=== PATIENT | female | born 1945 | race Caucasian/White ===

== ENCOUNTER 2017-09-25 13:52 | Emergency (ER) | payer OTHER, MEDICARE ==
[2017-09-25] MEDS: DEXAMETHASONE 10 MG/ML 1 ML INJ IM (16:43)
[2017-09-25] MEDS: CEFTRIAXONE 1 GM INJ IM (19:53)
== END 2017-09-25 20:06 | disposition home or self-care (01) ==
LOC: E/R 13:52 → FTE 20:06
DX: J02.9 Acute pharyngitis, unspecified (principal); I10 Essential (primary) hypertension; E11.9 Type 2 diabetes mellitus without complications; R09.81 Nasal congestion; Z79.82 Long term (current) use of aspirin
CPT/HCPCS: 87880; 96372; 99284-25

== ENCOUNTER 2018-10-28 13:12 | Inpatient (IN) | payer MEDICARE, OTHER ==
[2018-10-28] MEDS: ACETAMINOPHEN 325 MG TAB PO (13:27)
[2018-10-28] MEDS: IBUPROFEN 800 MG TAB PO (13:30)
[2018-10-28 14:01] LABS: ADD MAN DIFF? NO
[2018-10-28 14:05] LABS: WHITE BLOOD COUNT 12.2 10^3/ul (4.8-10.8)
[2018-10-28 14:05] LABS: BASOPHILS % 0.2 % (0.0-2.0); EOSINOPHILS % 0.2 % (0.0-7.0); HEMATOCRIT 37.3 % (37.0-47.0); HEMOGLOBIN 12.1 g/dl (12.0-16.0); LYMPHOCYTES # 1.4 10^3/ul (0.8-2.9); LYMPHOCYTES % 11.6 % (15.0-51.0); MEAN CORPUSCULAR HEMOGLOBIN 29.7 pg (29.0-33.0); MEAN CORPUSCULAR HGB CONC 32.4 g/dl (32.0-37.0); MEAN CORPUSCULAR VOLUME 91.6 fl (82.0-101.0); MEAN PLATELET VOLUME 10.6 fl (7.4-10.4); MONOCYTE # 0.1 10^3/ul (0.3-0.9); MONOCYTES % 0.7 % (0.0-11.0); NEUTROPHIL # 10.6 10^3/ul (1.6-7.5); NEUTROPHILS % 86.6 % (39.0-77.0); PLATELET COUNT 226 10^3/UL (140-415); RED BLOOD COUNT 4.07 10^6/ul (4.20-5.40); RED CELL DISTRIBUTION WIDTH 13.8 % (11.5-14.5)
[2018-10-28 14:25] LABS: INR 0.98; PROTIME 13.1 Sec (11.9-14.9)
[2018-10-28 14:26] LABS: PARTIAL THROMBOPLASTIN TIME 28.4 Sec (23.0-35.0)
[2018-10-28 14:27] LABS: ALANINE AMINOTRANSFERASE 24 IU/L (13-69); ALBUMIN 4.5 g/dl (3.3-4.9); ALBUMIN/GLOBULIN RATIO 1.21; ALKALINE PHOSPHATASE 66 IU/L (42-121); AMYLASE 75 U/L (11-123); ANION GAP 13 (5-13); ASPARTATE AMINO TRANSFERASE 36 IU/L (15-46); BILIRUBIN,INDIRECT 0.7 mg/dl (0-1.1); BILIRUBIN,TOTAL 0.7 mg/dl (0.2-1.3); BLOOD UREA NITROGEN 16 mg/dl (7-20); CALCIUM 9.5 mg/dl (8.4-10.2); CARBON DIOXIDE 24 mmol/L (21-31); CHLORIDE 98 mmol/L (97-110); CREATININE 0.95 mg/dl (0.44-1.00); GLUCOSE 153 mg/dl (70-220); LIPASE 32 U/L (23-300); POTASSIUM 3.8 mmol/L (3.5-5.1); SODIUM 135 mmol/L (135-144); TOTAL PROTEIN 8.2 g/dl (6.1-8.1)
[2018-10-28] MEDS: ACETAMINOPHEN 650 MG SUPP PR (14:29)
[2018-10-28] MEDS: SODIUM CHLORIDE 0.9% 1L BAG IV* (14:29)
[2018-10-28] MEDS: CEFEPIME 2GM/50 ML (PMX) 50 ML IVPB (14:30)
[2018-10-28 14:38] LABS: AADO2 Arterial 45.7 mmHg (7.0-24.0); Allen Test ACCEPTAB; Arterial Base Excess 2.9 mmol/L (-3.0-3); Arterial Blood Gas Oxygen Sat 94.3 mmHG (95.0-100.0); Arterial COHb 0.3 % (0.0-3.0); Arterial Fraction of Oxyhgb 93.7 % (93.0-99.0); Arterial HCO3 25.5 mmol/L (22.0-26.0); Arterial MetHb 0.3 % (0.0-1.5); Arterial pCO2 32.8 mmhg (35-45); MODE ROOM AIR; Site Right Radial; TROPONIN-I < 0.012 ng/ml (0.000-0.120)
[2018-10-28] MEDS: VANCOMYCIN 1 GM (PMX) 250 ML IVPB (15:13)
[2018-10-28 15:41] LABS: ADD UMIC YES; UR ASCORBIC ACID NEGATIVE (NEGATIVE); UR BACTERIA MODERATE /HPF (NONE SEEN); UR BILIRUBIN (Dip) NEGATIVE (NEGATIVE); UR BLOOD (Dip) 3+ mg/dL (NEGATIVE); UR CLARITY SLIGHTLY CLOUDY (CLEAR); UR COLOR YELLOW (YELLOW); UR GLUCOSE (Dip) NEGATIVE (NEGATIVE); UR KETONES (Dip) TRACE mg/dL (NEGATIVE); UR LEUKOCYTE ESTERASE (Dip) NEGATIVE Leu/ul (NEGATIVE); UR NITRITE (Dip) POSITIVE (NEGATIVE); UR RBC 32 /HPF (0-5); UR SPECIFIC GRAVITY (Dip) 1.016 (1.003-1.030); UR SQUAMOUS EPITHELIAL CELL FEW /HPF (FEW); UR TOTAL PROTEIN (Dip) NEGATIVE (NEGATIVE); UR UROBILINOGEN (Dip) NEGATIVE (NEGATIVE); UR WBC 12 /HPF (0-5)
[2018-10-28] MEDS ORDERED: ONDANSETRON 4 MG INJ IV ×2 (16:00→17:30)
[2018-10-28] MEDS ORDERED: ACETAMINOPHEN 325 MG TAB PO (16:00)
[2018-10-28] MEDS: SOD CHLORIDE 0.9% 1,000 ML IV (17:15)
[2018-10-28] MEDS ORDERED: BISACODYL 10 MG SUPP PR (17:30)
[2018-10-28] MEDS ORDERED: HYDROCODONE/APAP (5/325) TAB PO (17:30)
[2018-10-28] MEDS ORDERED: DOCUSATE SODIUM 100 MG CAP PO (17:30)
[2018-10-28] MEDS ORDERED: BISACODYL (EC) 5 MG TAB PO (17:30)
[2018-10-28] MEDS ORDERED: morphine 2 MG INJ IV (17:30)
[2018-10-28] MEDS ORDERED: ZOLPIDEM 5 MG TAB PO (17:30)
[2018-10-28] MEDS ORDERED: NACL 0.9% 3 ML SYG IV (17:30)
[2018-10-28 18:35] LABS: LACTIC ACID 1.5 mmol/L (0.5-2.0)
[2018-10-28] MEDS ORDERED: BARIUM SULF 2% 450 ML BTL (BERRY SMOOTHIE) PO (19:00)
[2018-10-28] MEDS: CINACALCET 30 MG TAB PO (21:26)
[2018-10-28] MEDS: GABAPENTIN 100 MG CAP PO (21:26)
[2018-10-28 21:30] LABS: LACTIC ACID 2.3 mmol/L (0.5-2.0)
[2018-10-28] MEDS: FAMOTIDINE 20 MG TAB PO (21:33)
[2018-10-28] MEDS: traMADol 50 MG TAB PO (22:43)
[2018-10-29] MEDS: SOD CHLORIDE 0.9% 1,000 ML IV ×3 (02:15→21:21)
[2018-10-29 06:13] LABS: ADD MAN DIFF? NO
[2018-10-29 06:16] LABS: BASOPHILS % 0.3 % (0.0-2.0); EOSINOPHILS # 0.2 10^3/ul (0.0-0.5); EOSINOPHILS % 1.4 % (0.0-7.0); HEMATOCRIT 33.1 % (37.0-47.0); HEMOGLOBIN 10.6 g/dl (12.0-16.0); LYMPHOCYTES % 28.7 % (15.0-51.0); MEAN CORPUSCULAR HEMOGLOBIN 29.7 pg (29.0-33.0); MEAN CORPUSCULAR VOLUME 92.7 fl (82.0-101.0); NEUTROPHIL # 8.7 10^3/ul (1.6-7.5); NEUTROPHILS % 62.2 % (39.0-77.0); PLATELET COUNT 191 10^3/UL (140-415); RED BLOOD COUNT 3.57 10^6/ul (4.20-5.40); RED CELL DISTRIBUTION WIDTH 14.2 % (11.5-14.5)
[2018-10-29] MEDS: PANTOPRAZOLE (EC) 40 MG TAB PO (06:31)
[2018-10-29 06:59] LABS: LACTIC ACID 0.9 mmol/L (0.5-2.0)
[2018-10-29 07:08] LABS: ALANINE AMINOTRANSFERASE 28 IU/L (13-69); ALBUMIN 3.5 g/dl (3.3-4.9); ALBUMIN/GLOBULIN RATIO 1.16; ALKALINE PHOSPHATASE 43 IU/L (42-121); ANION GAP 7 (5-13); ASPARTATE AMINO TRANSFERASE 28 IU/L (15-46); BILIRUBIN,INDIRECT 0.4 mg/dl (0-1.1); BILIRUBIN,TOTAL 0.4 mg/dl (0.2-1.3); BLOOD UREA NITROGEN 14 mg/dl (7-20); CALCIUM 8.1 mg/dl (8.4-10.2); CARBON DIOXIDE 25 mmol/L (21-31); CHLORIDE 109 mmol/L (97-110); CREATININE 0.88 mg/dl (0.44-1.00); GLUCOSE 115 mg/dl (70-220); MAGNESIUM 1.8 mg/dl (1.7-2.5); PHOSPHORUS 4.1 mg/dl (2.5-4.9); SODIUM 141 mmol/L (135-144); TOTAL PROTEIN 6.5 g/dl (6.1-8.1)
[2018-10-29 08:35] LABS: HEMOGLOBIN A1C 6.3 % (0-5.9)
[2018-10-29] MEDS ORDERED: CEFTRIAXONE 2 GM/50 ML (PMX) 50 ML IVPB (09:00)
[2018-10-29] MEDS: ASPIRIN (EC) 81 MG TAB PO (10:14)
[2018-10-29] MEDS: CINACALCET 30 MG TAB PO ×2 (10:14→20:27)
[2018-10-29] MEDS: ENOXAPARIN 40 MG/0.4 ML SYG SC (10:21)
[2018-10-29] MEDS: PIPER-TAZO 3.375 GM IV (PMX) 100 ML IVPB ×2 (10:35→18:42)
[2018-10-29] MEDS: traMADol 50 MG TAB PO ×2 (14:13→22:24)
[2018-10-29] MEDS: GABAPENTIN 100 MG CAP PO (20:25)
[2018-10-29] MEDS: ACETAMINOPHEN 325 MG TAB PO (23:49)
[2018-10-30] MEDS: PIPER-TAZO 3.375 GM IV (PMX) 100 ML IVPB ×2 (02:23→10:16)
[2018-10-30] MEDS: traMADol 50 MG TAB PO (04:57)
[2018-10-30 05:25] LABS: ADD MAN DIFF? NO
[2018-10-30 05:36] LABS: BASOPHILS % 0.4 % (0.0-2.0); EOSINOPHILS # 0.2 10^3/ul (0.0-0.5); EOSINOPHILS % 2.3 % (0.0-7.0); HEMATOCRIT 31.1 % (37.0-47.0); HEMOGLOBIN 10.1 g/dl (12.0-16.0); LYMPHOCYTES # 3.3 10^3/ul (0.8-2.9); LYMPHOCYTES % 33.9 % (15.0-51.0); MEAN CORPUSCULAR HEMOGLOBIN 29.9 pg (29.0-33.0); MEAN CORPUSCULAR HGB CONC 32.5 g/dl (32.0-37.0); MEAN PLATELET VOLUME 11.1 fl (7.4-10.4); MONOCYTE # 0.7 10^3/ul (0.3-0.9); MONOCYTES % 7.5 % (0.0-11.0); NEUTROPHIL # 5.4 10^3/ul (1.6-7.5); NEUTROPHILS % 55.5 % (39.0-77.0); PLATELET COUNT 190 10^3/UL (140-415); RED BLOOD COUNT 3.38 10^6/ul (4.20-5.40); RED CELL DISTRIBUTION WIDTH 14.1 % (11.5-14.5)
[2018-10-30 05:36] LABS: WHITE BLOOD COUNT 9.7 10^3/ul (4.8-10.8)
[2018-10-30 06:27] LABS: ALANINE AMINOTRANSFERASE 27 IU/L (13-69); ALBUMIN 3.5 g/dl (3.3-4.9); ALBUMIN/GLOBULIN RATIO 1.12; ALKALINE PHOSPHATASE 42 IU/L (42-121); ANION GAP 10 (5-13); ASPARTATE AMINO TRANSFERASE 30 IU/L (15-46); BILIRUBIN,INDIRECT 0.3 mg/dl (0-1.1); BILIRUBIN,TOTAL 0.3 mg/dl (0.2-1.3); BLOOD UREA NITROGEN 14 mg/dl (7-20); CALCIUM 7.5 mg/dl (8.4-10.2); CARBON DIOXIDE 26 mmol/L (21-31); CHLORIDE 106 mmol/L (97-110); CREATININE 1.03 mg/dl (0.44-1.00); GLUCOSE 104 mg/dl (70-220); SODIUM 142 mmol/L (135-144); TOTAL PROTEIN 6.6 g/dl (6.1-8.1)
[2018-10-30] MEDS: PANTOPRAZOLE (EC) 40 MG TAB PO (06:37)
[2018-10-30 06:45] LABS: POTASSIUM 3.7 mmol/L (3.5-5.1)
[2018-10-30] MEDS: ENOXAPARIN 40 MG/0.4 ML SYG SC (08:59)
[2018-10-30] MEDS: ASPIRIN (EC) 81 MG TAB PO (09:00)
[2018-10-30] MEDS: CINACALCET 30 MG TAB PO (09:00)
[2018-10-30] MEDS: SOD CHLORIDE 0.9% 1,000 ML IV (09:51)
== END 2018-10-30 18:00 | disposition home or self-care (01) | DRG 872 ==
LOC: E/R 13:12 → 2NE 10-29 12:06 → 6WM 15:52
DX: A41.51 Sepsis due to Escherichia coli [E. coli] (principal); N30.00 Acute cystitis without hematuria; R65.20 Severe sepsis without septic shock; I10 Essential (primary) hypertension; E21.3 Hyperparathyroidism, unspecified; E11.9 Type 2 diabetes mellitus without complications; E88.81 Metabolic syndrome and other insulin resistance; K57.30 Diverticulosis of large intestine without perforation or abscess without bleeding; M51.16 Intervertebral disc disorders with radiculopathy, lumbar region; M48.061 Spinal stenosis, lumbar region without neurogenic claudication; M19.90 Unspecified osteoarthritis, unspecified site; Z96.643 Presence of artificial hip joint, bilateral; Z79.82 Long term (current) use of aspirin
CPT/HCPCS: 36415; 36600; 70450; 71045; 74176; 80053; 81001; 82150; 82803; 82962; 83036; 83605; 83690; 83735; 84100; 84443; 84484; 85025; 85610; 85730; 86850; 86900; 86901; 87040-91; 87086; 87400; 93005; 93306; 96374; 96375; 99285-25